=== PATIENT | female | born 1950 | race Caucasian/White ===

== ENCOUNTER 2019-02-20 10:18 | Emergency (ER) | payer OTHER ==
[~2019-02-20] VITALS: Ht 167.6 cm; Wt 79.4 kg
[2019-02-20] MEDS ORDERED: CALCIUM 600 +1 EAC1 PO (10:59)
[2019-02-20] MEDS ORDERED: METHIMAZOLE5 MG PO (10:59)
[2019-02-20] MEDS ORDERED: ZOLOFT50 MG PO (10:59)
[2019-02-20] MEDS ORDERED: CENTRUM SILVER1 EAC4 PO (11:00)
[2019-02-20] MEDS ORDERED: VITAMIN B-1100 M1 PO (11:00)
[2019-02-20 12:14] VITALS: BP 132/85
[2019-02-20] MEDS ORDERED: HYDROCODONE-AP1 EAC6 PO (12:48)
== END 2019-02-20 12:55 | disposition home or self-care (01) ==
LOC: ER 10:18
DX: S43.014A Anterior dislocation of right humerus, initial encounter (principal); W18.30XA Fall on same level, unspecified, initial encounter; Y93.02 Activity, running; Y92.89 Other specified places as the place of occurrence of the external cause; Y99.8 Other external cause status; E05.90 Thyrotoxicosis, unspecified without thyrotoxic crisis or storm